=== PATIENT | female | born 1955 | race African-American/Black ===

== ENCOUNTER 2021-10-06 10:17 | Emergency (ER) | payer OTHER ==
[~2021-10-06] VITALS: Ht 170.2 cm; Wt 100.0 kg
[2021-10-06] MEDS ORDERED: ASPI-1497 PO (10:31)
[2021-10-06] MEDS ORDERED: ATOR40TA70 PO (10:31)
[2021-10-06] MEDS ORDERED: ACETAMINOPHEN 325MG TABLET PO PRN (11:00)
[2021-10-06] MEDS ORDERED: HYDROCODONE/ACETAMINOPHEN 5/325MG TABLET PO PRN (11:00)
[2021-10-06 11:12] VITALS: BP 139/79
[2021-10-06] MEDS ORDERED: IBUP-2029 MT (12:08)
[2021-10-06] MEDS ORDERED: HYDR-4001 MT (12:08)
== END 2021-10-06 12:23 | disposition home or self-care (01) ==
LOC: ER 10:38
DX: S32.2XXA Fracture of coccyx, initial encounter for closed fracture (principal); E78.00 Pure hypercholesterolemia, unspecified; I10 Essential (primary) hypertension; Z88.6 Allergy status to analgesic agent; Z88.1 Allergy status to other antibiotic agents; Z86.73 Personal history of transient ischemic attack (TIA), and cerebral infarction without residual deficits; Z98.890 Other specified postprocedural states; W18.30XA Fall on same level, unspecified, initial encounter; Y93.89 Activity, other specified; Y92.89 Other specified places as the place of occurrence of the external cause; Y99.8 Other external cause status
CPT/HCPCS: 72220; 99283

== ENCOUNTER 2023-02-20 15:26 | Emergency (ER) | payer OTHER ==
[~2023-02-20] VITALS: Ht 167.6 cm; Wt 95.0 kg
[~2023-02-20 15:26] MED LIST: ASPI-1497 PO; ATOR40TA70 PO; HYDR-4001 MT; IBUP-2029 MT
[2023-02-20 15:33] VITALS: O2SAT 96
[2023-02-20] MEDS ORDERED: KETOROLAC 30MG/ML VIAL IM ONE ×2 (17:15→18:30)
[2023-02-20] MEDS ORDERED: IBUP-2029 MT (18:13)
[2023-02-20] MEDS ORDERED: NAPR-1176 MT (18:26)
[2023-02-20 18:47] VITALS: BP 135/88; PULSE 90; RESP 17; TEMP 99
== END 2023-02-20 18:45 | disposition home or self-care (01) ==
LOC: ER 15:26
DX: S06.9XAA Unspecified intracranial injury with loss of consciousness status unknown, initial encounter (principal); I10 Essential (primary) hypertension; E78.00 Pure hypercholesterolemia, unspecified; Z88.6 Allergy status to analgesic agent; Z88.1 Allergy status to other antibiotic agents; Z88.5 Allergy status to narcotic agent; Z79.899 Other long term (current) drug therapy; Z86.73 Personal history of transient ischemic attack (TIA), and cerebral infarction without residual deficits; Z79.82 Long term (current) use of aspirin; W01.0XXA Fall on same level from slipping, tripping and stumbling without subsequent striking against object, initial encounter; Y93.01 Activity, walking, marching and hiking; Y92.89 Other specified places as the place of occurrence of the external cause; Y99.8 Other external cause status
CPT/HCPCS: 99285; 70450; 96372; J1885